=== PATIENT | male | born 1975 | race African-American/Black ===

== ENCOUNTER 2024-01-02 13:43 | Emergency (ER) | payer OTHER ==
[~2024-01-02] VITALS: Ht 170.2 cm; Wt 69.0 kg
[~2024-01-02 13:43] MED LIST: AMLO5TAB88 MT; ASPI-1497 PO; INSU100I28 SQ; KEPP500 PO; LIP40 PO
[2024-01-02 13:45] VITALS: O2SAT 100
[2024-01-02 14:32] LABS: BASOPHILS % 0.6 % (0.0-2.0); DIFFERENTIAL COMMENT 0; EOSINOPHILS % 5.6 % (0.0-5.0); HEMOGLOBIN. 10.3 g/dL (14.0-18.0); LYMPHOCYTES % 23.7 % (20.0-50.0); MEAN CORPUSCULAR HGB CONC 33.3 g/dL (31.0-37.0); MEAN CORPUSCULAR VOLUME 78.2 fL (80.0-94.0); MEAN PLATELET VOLUME 8.8 fl (7.4-10.4); MONOCYTES % 10.3 % (2.0-8.0); NEUTROPHILS % 59.8 % (40.0-76.0); PLATELET 127 x1000/uL (130-400); RED BLOOD CELL COUNT 3.96 mill/uL (4.7-6.1); RED CELL DISTRIBUTION WIDTH 14.1 % (11.6-14.6); WHITE BLOOD COUNT 3.7 x1000/uL (4.5-11.0)
[2024-01-02 14:49] LABS: ALANINE AMINOTRANSFERASE 59 IU/L (10-49); ASPARTATE AMINOTRANSFERASE 34 IU/L (<34); BILIRUBIN TOTAL 0.2 mg/dL (0.1-1.0); CALCIUM 9.2 mg/dL (8.7-10.4); CARBON DIOXIDE 28 mEq/L (21-32); CHLORIDE 106 mEq/L (98-107); CREATININE 0.9 mg/dL (0.6-1.3); GLUCOSE 310 mg/dL (70-105); POTASSIUM 4.1 mEq/L (3.5-5.1); PROTEIN TOTAL 7.4 g/dL (6.0-8.3); SODIUM 140 mEq/L (136-145); UREA NITROGEN BLOOD 17 mg/dL (9-23)
[2024-01-02] MEDS: LEVETIRACETAM 500MG TABLET PO SCH (14:57)
[2024-01-02] MEDS ORDERED: KEPP500 MT (15:35)
[2024-01-03 07:49] VITALS: BP 152/69; PULSE 81; RESP 17; TEMP 98.2
== END 2024-01-03 14:48 | disposition home or self-care (01) ==
LOC: ER 14:26
DX: G40.909 Epilepsy, unspecified, not intractable, without status epilepticus (principal); D64.9 Anemia, unspecified; R73.9 Hyperglycemia, unspecified
CPT/HCPCS: 80053; 85025; 36415; 99283; Z7610 ×2